=== PATIENT | female | born 1955 | race Two or more races ===

== ENCOUNTER 2018-04-02 09:38 | Outpatient (CLI) | payer BC ==
[2018-04-02 10:24] LABS: BASOPHILS # (AUTO) 0.1 /CMM (0.0-0.2); BASOPHILS % (AUTO) 0.9 % (0.0-2.0); EOSINOPHILS % (AUTO) 6.9 % (0.0-6.0); HEMATOCRIT 45 % (33-45); HEMOGLOBIN 14.8 g/dL (11.5-14.8); LYMPHOCYTES # (AUTO) 2.6 /CMM (0.8-4.8); LYMPHOCYTES % (AUTO) 32.6 % (20.0-44.0); MEAN CORPUSCULAR HEMOGLOBIN 29 PG (26.0-33.0); MEAN CORPUSCULAR HGB CONC 33 g/dl (31.0-36.0); MEAN CORPUSCULAR VOLUME 88 fL (82-100); MONOCYTES # (AUTO) 0.4 /CMM (0.1-1.30); MONOCYTES % (AUTO) 4.5 % (2.0-12.0); NEUTROPHILS # (AUTO) 4.4 /CMM (1.8-8.9); NEUTROPHILS % (AUTO) 55.1 % (43.0-81.0); PLATELET COUNT (AUTO) 360 /CMM (150-450); RDW COEFFICIENT OF VARIATION 12.5 (11.5-15.0); RED BLOOD CELL COUNT(AUTO) 5.12 MIL/uL (4.0-5.2)
[2018-04-02 10:33] LABS: APPEARANCE,URINE SL CLOUDY (CLEAR); BILIRUBIN,URINE NEGATIVE (NEGATIVE); BLOOD, URINE NEGATIVE Ery/uL (NEGATIVE); COLOR,URINE YELLOW (YELLOW); KETONES,URINE NEGATIVE (NEGATIVE); LEUKOCYTE ESTERASE ,URINE NEGATIVE (NEGATIVE); NITRITE, URINE NEGATIVE (NEGATIVE); PROTEIN,URINE NEGATIVE (NEGATIVE); UGLUCOSE TRACE mg/dL (NEGATIVE); UROBILINOGEN,URINE 0.2 EU/dL (0.2)
[2018-04-02 10:46] LABS: ALBUMIN 3.9 g/dL (3.4-5.0); BILIRUBIN,TOTAL 0.5 mg/dL (0.2-1.0); CALCIUM, SERUM 9.7 mg/dL (8.5-10.1); CREATININE 0.9 mg/dL (0.6-1.3); TOTAL PROTEIN, SERUM 8.4 g/dL (6.4-8.2)
[2018-04-02 11:01] LABS: THYROID STIMULATING HORMONE 0.701 uIU/mL (0.358-3.74)
[2018-04-02 11:33] LABS: BACTERIA,URINE Few /HPF (None Seen); RBC,URINE 0-2 /HPF (0-2); SQUAMOUS EPITHELIAL CELL,UR Few /HPF (None Seen); WBC,URINE 0-2 /HPF (0-3); YEAST,URINE Few /HPF (None Seen)
[2018-04-02 20:08] LABS: OCCULT BLOOD STOOL NEGATIVE (NEGATIVE)
[2018-04-03 08:10] LABS: T3, FREE 2.8 pg/mL (2.0-4.4)
== END 2018-04-02 23:59 | disposition home or self-care (01) ==
LOC: LAB 09:38
DX: E78.5 Hyperlipidemia, unspecified (principal); E55.9 Vitamin D deficiency, unspecified; R53.83 Other fatigue; R53.81 Other malaise; E11.9 Type 2 diabetes mellitus without complications
CPT/HCPCS: 36415; 80053-TC; 80061-TC; 81000-TC; 82272-TC; 82306; 84439-TC; 84443-TC; 84481; 85025-TC

== ENCOUNTER 2018-04-24 07:56 | Outpatient (CLI) | payer BC ==
[2018-04-25 11:16] LABS: *SPE A/G RATIO 1.2 (0.7-1.7); *SPE ALBUMIN 3.8 g/dL (2.9-4.4); *SPE ALPHA-1-GLOBULIN 0.2 g/dL (0.0-0.4); *SPE ALPHA-2-GLOBULIN 0.7 g/dL (0.4-1.0); *SPE BETA GLOBULIN 1.1 g/dL (0.7-1.3); *SPE GLOBULIN, TOTAL 3.3 g/dL (2.2-3.9); *SPE M-SPIKE Not Observed g/dL (Not Observed); *SPEGAMMA GLOBULIN 1.3 g/dL (0.4-1.8)
== END 2018-04-24 23:59 | disposition home or self-care (01) ==
LOC: LAB 07:56
DX: E11.65 Type 2 diabetes mellitus with hyperglycemia (principal); R77.9 Abnormality of plasma protein, unspecified
CPT/HCPCS: 36415; 84155; 84165

== ENCOUNTER 2019-10-16 08:51 | Outpatient (CLI) | payer BC ==
[2019-10-16 09:58] LABS: BASOPHILS # (AUTO) 0.1 /CMM (0.0-0.2); BASOPHILS % (AUTO) 0.8 % (0.0-2.0); EOSINOPHILS % (AUTO) 5.1 % (0.0-6.0); HEMATOCRIT 41 % (33-45); HEMOGLOBIN 13.8 g/dL (11.5-14.8); LYMPHOCYTES # (AUTO) 2.7 /CMM (0.8-4.8); LYMPHOCYTES % (AUTO) 27.9 % (20.0-44.0); MEAN CORPUSCULAR HGB CONC 34 g/dl (31.0-36.0); MEAN CORPUSCULAR VOLUME 87 fL (82-100); MONOCYTES # (AUTO) 0.4 /CMM (0.1-1.30); MONOCYTES % (AUTO) 4.5 % (2.0-12.0); NEUTROPHILS # (AUTO) 5.9 /CMM (1.8-8.9); NEUTROPHILS % (AUTO) 61.7 % (43.0-81.0); PLATELET COUNT (AUTO) 403 /CMM (150-450); RED BLOOD CELL COUNT(AUTO) 4.75 MIL/uL (4.0-5.2); WHITE BLOOD COUNT (AUTO) 9.5 K/uL (4.3-11.0)
[2019-10-16 10:04] LABS: APPEARANCE,URINE CLEAR (CLEAR); BILIRUBIN,URINE NEGATIVE (NEGATIVE); BLOOD, URINE NEGATIVE Ery/uL (NEGATIVE); COLOR,URINE YELLOW (YELLOW); KETONES,URINE NEGATIVE (NEGATIVE); LEUKOCYTE ESTERASE ,URINE NEGATIVE (NEGATIVE); NITRITE, URINE NEGATIVE (NEGATIVE); PH,URINE 5.5 (5.0-8.0); PROTEIN,URINE NEGATIVE (NEGATIVE); UGLUCOSE NEGATIVE (NEGATIVE); UROBILINOGEN,URINE 0.2 EU/dL (0.2)
[2019-10-16 10:21] LABS: ALBUMIN 4.1 g/dL (3.4-5.0); BILIRUBIN,TOTAL 0.2 mg/dL (0.2-1.0); CREATININE 1.1 mg/dL (0.6-1.3); MAGNESIUM 1.9 mg/dL (1.8-2.4); POTASSIUM 4.6 mmol/L (3.5-5.1); TOTAL PROTEIN, SERUM 8.3 g/dL (6.4-8.2)
[2019-10-16 10:28] LABS: THYROID STIMULATING HORMONE 0.687 uIU/mL (0.358-3.74)
== END 2019-10-16 23:59 | disposition home or self-care (01) ==
LOC: LAB 08:51
PROVIDERS: ATTEND Legal Medicine
DX: I10 Essential (primary) hypertension (principal); E11.9 Type 2 diabetes mellitus without complications; E78.00 Pure hypercholesterolemia, unspecified; E03.9 Hypothyroidism, unspecified
CPT/HCPCS: 36415; 80053-TC; 81000-TC; 83735-TC; 84443-TC; 85025-TC

== ENCOUNTER 2025-04-23 19:51 | Inpatient (IN) | payer MEDICARE, OTHER ==
[~2025-04-23] VITALS: Ht 165.1 cm; Wt 94.9 kg
[2025-04-23 20:30] LABS: PLATELET COUNT (AUTO) 180 K/uL (150-450); RED BLOOD CELL COUNT(AUTO) 3.87 MIL/uL (4.0-5.2); RED CELL DISTRIBUTION WIDTH 14.0 % (11.5-15.0); WHITE BLOOD COUNT (AUTO) 3.1 K/uL (4.3-11.0)
[2025-04-23 20:35] LABS: CALCIUM, SERUM 8.7 mg/dL (8.5-10.1); CREATININE 0.9 mg/dL (0.6-1.3); SODIUM SERUM 143.0 mmol/L (136-145); UREA NITROGEN, BLOOD 17.0 mg/dL (7-18)
[2025-04-24] MEDS ORDERED: MAG HYDROX/AL HYDROX/SIMETH 30 ML UDC PO PRN
[2025-04-24] MEDS ORDERED: ACETAMINOPHEN 325 MG TABLET PO PRN
[2025-04-24] MEDS ORDERED: ONDANSETRON HCL/PF 4 MG/2 ML VIAL IVP PRN
[2025-04-24] MEDS ORDERED: MAGNESIUM HYDROXIDE 30 ML UDC PO PRN
[2025-04-24] MEDS ORDERED: Z GUARD REMEDY 4 OZ OINT TP PRN
[2025-04-24] MEDS ORDERED: TEMAZEPAM 15 MG CAPSULE PO PRN
[2025-04-24] MEDS: IV NS 0.9% 1,000 ML IV PRN (03:42)
[2025-04-24 04:00] VITALS: BP 104/63; TEMP 97.7; O2SAT 94
[2025-04-24 06:23] LABS: PLATELET COUNT (AUTO) 167 K/uL (150-450); RED BLOOD CELL COUNT(AUTO) 3.69 MIL/uL (4.0-5.2); RED CELL DISTRIBUTION WIDTH 13.9 % (11.5-15.0); WHITE BLOOD COUNT (AUTO) 3.5 K/uL (4.3-11.0)
[2025-04-24 06:27] LABS: CALCIUM, SERUM 8.5 mg/dL (8.5-10.1); CREATININE 0.7 mg/dL (0.6-1.3); PHOSPHORUS 3.7 mg/dL (2.5-4.9); SODIUM SERUM 146.0 mmol/L (136-145); UREA NITROGEN, BLOOD 17.0 mg/dL (7-18)
[2025-04-24 06:37] LABS: LDL 43.0 mg/dL (0-99)
[2025-04-24] MEDS: PANTOPRAZOLE 40 MG TABLET.DR PO SCH (07:37)
[2025-04-24] MEDS: HYDROCODONE/APAP 5/325MG TABLET PO PRN (07:38)
[2025-04-24 08:00] VITALS: BP_SYST 120; BP_SYST 94; BP_DIAS 58; BP_DIAS 85; TEMP 98.6; O2SAT 93; O2SAT 96
[2025-04-24] MEDS ORDERED: HYDR-4209 PO (08:15)
[2025-04-24] MEDS ORDERED: ACET-2030 PO (08:15)
[2025-04-24] MEDS ORDERED: LORA10TA7 PO (08:15)
[2025-04-24] MEDS ORDERED: ROSU20TA2 PO (08:15)
[2025-04-24] MEDS ORDERED: PETR113O TP (08:15)
[2025-04-24] MEDS ORDERED: GABA-532 PO (08:15)
[2025-04-24] MEDS ORDERED: VENL37.510 PO (08:15)
[2025-04-24] MEDS ORDERED: SPIR25TA6 PO (08:15)
[2025-04-24] MEDS ORDERED: MECL-159 PO (08:15)
[2025-04-24] MEDS ORDERED: BUME2TAB7 PO (08:15)
[2025-04-24] MEDS ORDERED: POTA20PA40 PO (08:15)
[2025-04-24] MEDS ORDERED: MAGN400O6 PO (08:15)
[2025-04-24] MEDS ORDERED: TRAM50TA2 PO (08:15)
[2025-04-24] MEDS ORDERED: CYAN100T9 PO (08:15)
[2025-04-24] MEDS ORDERED: METO5TAB87 PO (08:15)
[2025-04-24] MEDS ORDERED: ONDA-97 PO (08:15)
[2025-04-24] MEDS ORDERED: ACET-868 PO (08:15)
[2025-04-24] MEDS: ENOXAPARIN SODIUM 40 MG/0.4 ML DISP.SYRIN SQ SCH (09:04)
[2025-04-24] MEDS ORDERED: ALBUTEROL SULFATE 8 GM HFA.AER.AD IH PRN (13:00)
[2025-04-24 16:00] VITALS: BP 93/65; TEMP 98.4; O2SAT 96
[2025-04-24 20:00] VITALS: BP 97/62; TEMP 98.1; O2SAT 98
[2025-04-25 04:00] VITALS: BP 100/61; TEMP 98.4; O2SAT 97
[2025-04-25 07:03] LABS: PLATELET COUNT (AUTO) 162 K/uL (150-450); RED BLOOD CELL COUNT(AUTO) 3.44 MIL/uL (4.0-5.2); RED CELL DISTRIBUTION WIDTH 14.2 % (11.5-15.0); WHITE BLOOD COUNT (AUTO) 4.7 K/uL (4.3-11.0)
[2025-04-25 07:38] LABS: CALCIUM, SERUM 8.4 mg/dL (8.5-10.1); CREATININE 0.7 mg/dL (0.6-1.3); PHOSPHORUS 3.1 mg/dL (2.5-4.9); SODIUM SERUM 145.0 mmol/L (136-145); UREA NITROGEN, BLOOD 13.0 mg/dL (7-18)
[2025-04-25 08:00] VITALS: BP 99/70; TEMP 97.9; O2SAT 97
[2025-04-25 16:00] VITALS: BP 97/61; TEMP 97.7; O2SAT 95
[2025-04-25 20:00] VITALS: BP 101/68; TEMP 98.4; O2SAT 95
[2025-04-26 04:00] VITALS: BP 95/65; TEMP 98.1; O2SAT 95
[2025-04-26 08:40] VITALS: BP 90/56; TEMP 98.6; O2SAT 95
== END 2025-04-26 13:35 | DRG 640 ==
LOC: EDUNIT# 19:51 → ER 19:54 → ICUOV 04-24 00:52 → MEDSG1 04-24 02:05
PROVIDERS: ADMIT Nurse Practitioner Acute Care; ATTEND Nurse Practitioner Acute Care
DX: E86.0 Dehydration (principal); U07.1 COVID-19; E66.9 Obesity, unspecified; F32.A Depression, unspecified; J45.909 Unspecified asthma, uncomplicated; K21.9 Gastro-esophageal reflux disease without esophagitis; M79.7 Fibromyalgia; Z90.49 Acquired absence of other specified parts of digestive tract; G47.33 Obstructive sleep apnea (adult) (pediatric); Z68.34 Body mass index [BMI] 34.0-34.9, adult; R53.1 Weakness; I10 Essential (primary) hypertension
CPT/HCPCS: 36415; 71045-TC; 80048-TC; 80061-TC; 83735-TC; 83880; 84100-TC; 84484-TC; 85025-TC; 85378-TC; 86140-TC; 87081-TC; 93970-TC; 97110-TC; 97116-TC; 97530-TC; A4223; G0378; J1650; J7030